=== PATIENT | male | born 1975 | race American Indian/Alaskan Native ===

== ENCOUNTER 2017-05-07 05:40 | Emergency (ER) | payer SELFPAY ==
[2017-05-07] MEDS ORDERED: ZOFRAN IV ONE (07:42)
[2017-05-07 08:15] LABS: Basophils % (Auto) 0.4 % (0.0-1.8); Eosinophils % (Auto) 0.2 % (0.0-4.3); Hematocrit 52.3 % (35.5-45.6); Hemoglobin 17.1 gm/dl (11.8-15.2); Mean Corpuscular HGB Conc 33 % (32-34); Mean Corpuscular Hemoglobin 28 pg (28-32); Mean Corpuscular Volume 84 fl (84-94); Platelet Count 288 K/mm3 (140-440); Red Blood Count 6.23 M/mm3 (3.65-5.03); Red Cell Distribution Width 15.1 % (13.2-15.2); White Blood Count 10.5 K/mm3 (4.5-11.0)
[2017-05-07 08:31] LABS: Alanine Aminotransferase 180 units/L (7-56); Albumin 4.5 g/dL (3.9-5); Albumin/Globulin Ratio 1.3 %; Alkaline Phosphatase 67 units/L (35-129); Anion Gap 18 mmol/L; Blood Urea Nitrogen 12 mg/dL (9-20); Calcium 9.2 mg/dL (8.4-10.2); Carbon Dioxide 25 mmol/L (22-30); Chloride 103.1 mmol/L (98-107); Glucose 89 mg/dL (75-100); Potassium 4.3 mmol/L (3.6-5.0); Sodium 142 mmol/L (137-145); Total Protein 7.9 g/dL (6.3-8.2)
--- NOTE | 2017-05-07 08:58 | Emergency Department Report ---
History of Present Illness - General Chief Complaint: Overdose Stated Complaint: OVERDOSE Time Seen by Provider: 05/07/17 07:19 Source: EMS Mode of arrival: Stretcher Limitations: Altered Mental Status - History of Present Illness MD Complaint: intentional overdose (patient was given Narcan for presumptive heroin overdose per EMS.) -: This morning Intent: unwilling to say How Overdose Was Discovered: called 911 (someone at residence) - Related Data Allergies Allergy/AdvReac Type Severity Reaction Status Date / Time Penicillins Allergy Unknown Verified 05/07/17 07:23 ED Review of Systems ROS: Stated complaint: OVERDOSE Other details as noted in HPI Comment: Unobtainable due to pts medical conditions ED Past Medical Hx - Past Medical History Previous Medical History?: No - Social History Smoking Status: Current Every Day Smoker Substance Use Type: Heroin ED Physical Exam - General Limitations: No Limitations General appearance: alert, in no apparent distress - Head Head exam: Present: atraumatic, normocephalic - Eye Eye exam: Present: normal appearance. Absent: scleral icterus - ENT ENT exam: Present: normal exam, mucous membranes moist - Neck Neck exam: Present: normal inspection - Respiratory Respiratory exam: Present: normal lung sounds bilaterally. Absent: respiratory distress - Cardiovascular Cardiovascular Exam: Present: regular rate, normal rhythm. Absent: systolic murmur, diastolic murmur, rubs, gallop - GI/Abdominal GI/Abdominal exam: Present: soft, normal bowel sounds. Absent: distended, tenderness, guarding, rebound, rigid - Rectal Rectal exam: Present: deferred - Extremities Exam Extremities exam: Present: normal inspection - Back Exam Back exam: Present: normal inspection - Neurological Exam Neurological exam: Present: alert, oriented X3, CN II-XII intact. Absent: motor sensory deficit - Psychiatric Psychiatric exam: Present: normal affect, normal mood - Skin Skin exam: Present: warm, dry, intact, normal color. Absent: rash ED Course Vital Signs 05/07/17 05/07/17 05/07/17 07:18 07:23 08:58 Temperature 97.8 F Pulse Rate 79 Respiratory 16 16 Rate Blood Pressure 125/90 Blood Pressure 104/61 [Right] O2 Sat by Pulse 92 92 Oximetry 05/07/17 09:31 Temperature Pulse Rate 99 H Respiratory 16 Rate Blood Pressure Blood Pressure 100/53 [Right] O2 Sat by Pulse 93 Oximetry - Reevaluation(s) Reevaluation #1: By the time of arrival the patient was reasonably awake. He did not want to provide any details on his substance abuse. Fact he requested discharge so he could "go back to work this afternoon". He was retained in the emergency department for observation for now more than 7 hours. He showed no signs of recurrent somnolence. He is appropriate for outpatient disposition. His drug screen was positive for okay but negative for opiates. It is somewhat uncertain as to what he may have ingested beyond the cocaine. Assuming it responded to Narcan obviously it was an opioid. 05/07/17 12:43 ED Medical Decision Making - Lab Data Result diagrams: 05/07/17 07:54 05/07/17 07:54 Laboratory Results - last 24 hr 05/07/17 05/07/17 07:54 07:54 WBC 10.5 RBC 6.23 H Hgb 17.1 H Hct 52.3 H MCV 84 MCH 28 MCHC 33 RDW 15.1 Plt Count 288 Lymph % (Auto) 9.1 L [place] % (Auto) 6.4 Eos % (Auto) 0.2 Baso % (Auto) 0.4 Lymph # 1.0 L [place] # 0.7 Eos # 0.0 Baso # 0.0 Seg Neutrophils % 83.9 H Seg Neutrophils # 8.8 H Sodium 142 Potassium 4.3 Chloride 103.1 Carbon Dioxide 25 Anion Gap 18 BUN 12 Creatinine 1.1 Estimated GFR > 60 BUN/Creatinine Ratio 10.90 Glucose 89 Calcium 9.2 Magnesium 2.20 Total Bilirubin 0.20 AST 114 H ALT 180 H Alkaline Phosphatase 67 Total Protein 7.9 Albumin 4.5 Albumin/Globulin Ratio 1.3 Laboratory Results - last 24 hr 05/07/17 05/07/17 05/07/17 07:54 07:54 07:54 WBC 10.5 RBC 6.23 H Hgb 17.1 H Hct 52.3 H MCV 84 MCH 28 MCHC 33 RDW 15.1 Plt Count 288 Lymph % (Auto) 9.1 L [place] % (Auto) 6.4 Eos % (Auto) 0.2 Baso % (Auto) 0.4 Lymph # 1.0 L [place] # 0.7 Eos # 0.0 Baso # 0.0 Seg Neutrophils % 83.9 H Seg Neutrophils # 8.8 H Sodium 142 Potassium 4.3 Chloride 103.1 Carbon Dioxide 25 Anion Gap 18 BUN 12 Creatinine 1.1 Estimated GFR > 60 BUN/Creatinine Ratio 10.90 Glucose 89 Calcium 9.2 Magnesium 2.20 Total Bilirubin 0.20 AST 114 H ALT 180 H Alkaline Phosphatase 67 Total Protein 7.9 Albumin 4.5 Albumin/Globulin Ratio 1.3 Urine Color Urine Turbidity Urine pH Ur Specific [place] Urine Protein Urine Glucose (UA) Urine Ketones Urine Blood Urine Nitrite Urine Bilirubin Urine Urobilinogen Ur Leukocyte Esterase Urine WBC (Auto) Urine RBC (Auto) U Epithel Cells (Auto) Urine Bacteria (Auto) Urine Mucus Salicylates < 0.3 L Urine Opiates Screen Urine Methadone Screen Acetaminophen Ur Barbiturates Screen Ur Phencyclidine Scrn Ur Amphetamines Screen U Benzodiazepines Scrn Urine Cocaine Screen U Marijuana (THC) Screen Drugs of Abuse Note Plasma/Serum Alcohol 05/07/17 05/07/17 05/07/17 07:54 07:54 09:41 WBC RBC Hgb Hct MCV MCH MCHC RDW Plt Count Lymph % (Auto) [place] % (Auto) Eos % (Auto) Baso % (Auto) Lymph # [place] # Eos # Baso # Seg Neutrophils % Seg Neutrophils # Sodium Potassium Chloride Carbon Dioxide Anion Gap BUN Creatinine Estimated GFR BUN/Creatinine Ratio Glucose Calcium Magnesium Total Bilirubin AST ALT Alkaline Phosphatase Total Protein Albumin Albumin/Globulin Ratio Urine Color Yellow Urine Turbidity Slightly-cloudy Urine pH 6.0 Ur Specific [place] 1.006 Urine Protein 30 mg/dl Urine Glucose (UA) >=500 Urine Ketones Tr Urine Blood Sm Urine Nitrite Neg Urine Bilirubin Neg Urine Urobilinogen < 2.0 Ur Leukocyte Esterase Neg Urine WBC (Auto) 2.0 Urine RBC (Auto) 2.0 U Epithel Cells (Auto) < 1.0 Urine Bacteria (Auto) 4+ Urine Mucus Few Salicylates Urine Opiates Screen Urine Methadone Screen Acetaminophen < 15.0 Ur Barbiturates Screen Ur Phencyclidine Scrn Ur Amphetamines Screen U Benzodiazepines Scrn Urine Cocaine Screen U Marijuana (THC) Screen Drugs of Abuse Note Plasma/Serum Alcohol 0.06 05/07/17 09:41 WBC RBC Hgb Hct MCV MCH MCHC RDW Plt Count Lymph % (Auto) [place] % (Auto) Eos % (Auto) Baso % (Auto) Lymph # [place] # Eos # Baso # Seg Neutrophils % Seg Neutrophils # Sodium Potassium Chloride Carbon Dioxide Anion Gap BUN Creatinine Estimated GFR BUN/Creatinine Ratio Glucose Calcium Magnesium Total Bilirubin AST ALT Alkaline Phosphatase Total Protein Albumin Albumin/Globulin Ratio Urine Color Urine Turbidity Urine pH Ur Specific [place] Urine Protein Urine Glucose (UA) Urine Ketones Urine Blood Urine Nitrite Urine Bilirubin Urine Urobilinogen Ur Leukocyte Esterase Urine WBC (Auto) Urine RBC (Auto) U Epithel Cells (Auto) Urine Bacteria (Auto) Urine Mucus Salicylates Urine Opiates Screen Presumptive negative Urine Methadone Screen Presumptive negative Acetaminophen Ur Barbiturates Screen Presumptive negative Ur Phencyclidine Scrn Presumptive negative Ur Amphetamines Screen Presumptive negative U Benzodiazepines Scrn Presumptive negative Urine Cocaine Screen Presumptive positive U Marijuana (THC) Screen Presumptive negative Drugs of Abuse Note Disclamer Plasma/Serum Alcohol - EKG Data EKG shows normal: sinus rhythm, axis, intervals, QRS complexes, ST-T waves Rate: normal - EKG Data Interpretation: nonspecific ST-T wave aura Critical care attestation.: If time is entered above; I have spent that time in minutes in the direct care of this critically ill patient, excluding procedure time. ED Disposition Clinical Impression: Substance abuse, Cocaine abuse, Opioid abuse Disposition: DC01 TO HOME OR SELFCARE Is pt being admited?: No Does the pt Need Aspirin: No Condition: Stable Instructions: Narcotic Abuse (ED), Cocaine Abuse (ED) Referrals: PRIMARY CARE, [Primary Care Provider[facility] - [facility]-5 Days Time of Disposition: 12:46
[2017-05-07 09:43] LABS: Urine Drugs of Abuse Note Disclamer
[2017-05-07 10:02] LABS: Bacteria,Urine 4+ /HPF (Negative); Bilirubin,Urine NEG (Negative); Blood,Urine SM (Negative); Ketones,Urine TR mg/dL (Negative); Leukocyte Esterase,Urine NEG (Negative); Mucus,Urine FEW /HPF; Nitrite,Urine NEG (Negative); Urobilinogen,Urine < 2.0 mg/dL (<2.0)
--- NOTE | 2017-05-07 12:14 | Consultation ---
History of Present Illness - Reason for Consult Consult date: 05/07/17 Reason for consult: unintentional overdose Medications and Allergies Allergies Allergy/AdvReac Type Severity Reaction Status Date / Time Penicillins Allergy Unknown Verified 05/07/17 07:23 Mental Status Exam - Vital signs Last Vital Signs Temp 97.8 F 05/07/17 07:23 Pulse 99 H 05/07/17 09:31 Resp 16 05/07/17 09:31 BP 100/53 05/07/17 09:31 Pulse Ox 93 05/07/17 09:31 Results Result Diagrams: 05/07/17 07:54 05/07/17 07:54 Abnormal lab results 05/07/17 05/07/17 05/07/17 Range/Units 07:54 07:54 07:54 RBC 6.23 H (3.65-5.03) M/mm3 Hgb 17.1 H (11.8-15.2) gm/dl Hct 52.3 H (35.5-45.6) % Lymph % (Auto) 9.1 L (13.4-35.0) % Lymph # 1.0 L (1.2-5.4) K/mm3 Seg Neutrophils % 83.9 H (40.0-70.0) % Seg Neutrophils # 8.8 H (1.8-7.7) K/mm3 AST 114 H (5-40) units/L ALT 180 H (7-56) units/L Salicylates < 0.3 L (2.8-20.0) mg/dL All other labs normal. Assessment and Plan Assessment and plan: CHIEF COMPLAINT IN PATIENTS WORDS: HISTORY OF PRESENT ILLNESS REQUIRING ADMISSION TO INPATIENT LEVEL OF CARE: (Describe the onset of Illness, Intensity of Symptoms, and Circumstances Leading to Admission) This is a 41 year-old domiciled male who reports a no formal PPH now presenting to the ER after an unintentional overdose on cocaine and heroin. Per review of medical record patient become apneic on the scene and was provided respiratory support as well as 2 doses of Narcan. On clinical examination, patient appeared alert and oriented. Patient was engaged in the clinical interview but somewhat confused about why he overdosed discussing the matter with him. Patient noted on my questioning that he had not intentionally overdose on these substances. Patient notes a substance use pattern is several weeks for the past 10-12 years. Patient did note taking cocaine as well as heroin during this most recent use. PSYCHIATRIC REVIEW OF SYSTEMS: Substance: Cocaine, heroin every 2 weeks for the past 10-12 years Depression: denies [place]: denies labile moods, no flight of ideas, not impulsive Psychosis: no AVH. No paranoia/grandiosity/erotomania Anxiety/ OCD/ PTSD: denies somatic symptoms, flashbacks, nightmares, avoidance, panic attacks Suicidality: denies SI Other Self-Injurious Behavior: none currently, no SIB noted recently Violent/ Aggressive Behavior: none noted CURRENT MEDICATIONS: ( Psychiatric and Non-psychiatric ) None ALLERGIES: Penicillin PAST PSYCHIATRIC HISTORY: ( Prior Treatment, Precipitating Factors, Diagnosis, and Course of Treatment ) Inpatient: none Outpatient: none Prior Suicide Attempts: denies Prior Self-Injurious Behaviors: denies PAST PSYCHIATRIC MEDICATION TRIALS: Denies MEDICAL HISTORY: (Chronic and Acute Illnesses, Current Medical Treatment, Recent Hospitalizations) Denies HISTORY OF TRAUMA/ABUSE: Patient denies on clinical examination DRUG / ALCOHOL ABUSE HISTORY: As noted above Detoxification / Withdrawal: Appears sedated after recent administration of Narcan due to overdose SOCIAL HISTORY: (Educational Level, Employment, Support System, Interpersonal Relationships) Employed at [employer] FAMILY HISTORY: Psychiatric/Substance Abuse Unknown MENTAL STATUS EXAM: General Appearance: casually dressed, in no acute distress Sensorium/Consciousness: alert and responding to external stimuli Eye Contact: limited Attitude / Behavior: cooperative, but guarded Psychomotor & Musculoskeletal Activity: WNL Mood: fine Affect: constricted Speech / Language: normal Thought Processes: organized, logical, linear Thought Content: no SI, no HI Perception: no AVH Orientation: person, place, time and situation Judgment What would you do if you smelled smoke in a crowded movie theater?: limited about substance abuse pattern Insight: limited about substance abuse pattern Intelligence Vocabulary, general fund of knowledge, educational level : Below Average Capacity of ADLs: Independent STRENGTHS: Future oriented, employed PSYCHOSOCIAL AND ENVIRONMENTAL STRESSORS: Thinking and chronic substance abuse ADMITTING DIAGNOSES Psychiatric: Acute intoxication with cocaine and heroin requiring Narcan 2 INITIAL PLAN OF CARE AND TREATMENT GOALS: Supportive care per ER protocol I discussed substance abuse programs with the patient, patient was not interested with his he does not believe he has a problem No further recommendations from psychiatry at this point in time as the patient is not interested or invested in any treatment options we have for him
[2017-05-07 14:11] VITALS: BP 130/75
== END 2017-05-07 14:12 | disposition home or self-care (01) ==
LOC: ED 05:40
DX: F14.10 Cocaine abuse, uncomplicated (principal); F11.10 Opioid abuse, uncomplicated; F19.10 Other psychoactive substance abuse, uncomplicated; F17.200 Nicotine dependence, unspecified, uncomplicated; Z88.0 Allergy status to penicillin
CPT/HCPCS: 36415; 80053; 80307; 81001; 83735; 85025; 93005; 93010; 96374; 99284; G0480; J2405; 80320

== ENCOUNTER 2019-04-17 14:05 | Emergency (ER) | payer SELFPAY ==
[2019-04-17 14:49] LABS: BUN/Creatinine Ratio 11; Blood Urea Nitrogen 10 mg/dL (9-20); Calcium 9.2 mg/dL (8.4-10.2); Hemolysis Index 11
[2019-04-17 14:53] LABS: Basophils # (Auto) 0.1 K/mm3 (0.0-0.1); Eosinophils # (Auto) 0.3 K/mm3 (0.0-0.4); Eosinophils % (Auto) 4.8 % (0.0-4.3); Hematocrit 46.3 % (35.5-45.6); Hemoglobin 15.2 gm/dl (11.8-15.2); Lymphocytes # (Auto) 2.6 K/mm3 (1.2-5.4); Lymphocytes % (Auto) 40.6 % (13.4-35.0); Mean Corpuscular HGB Conc 33 % (32-34); Mean Corpuscular Volume 82 fl (84-94); Monocytes # (Auto) 0.8 K/mm3 (0.0-0.8); Monocytes % (Auto) 12.3 % (0.0-7.3); Platelet Count 284 K/mm3 (140-440); Red Blood Count 5.67 M/mm3 (3.65-5.03); Red Cell Distribution Width 16.9 % (13.2-15.2)
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
[2019-04-17] MEDS ORDERED: CLEOCIN 600 MG/50 mL 600 MG/50 ML BAG IV ONE (15:15)
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
[2019-04-17] MEDS ORDERED: NORCO 5/325 PO ONE (15:43)
[2019-04-17] MEDS ORDERED: NORCO 5/325 ONE (15:45)
[2019-04-17 16:31] VITALS: BP 146/91
== END 2019-04-17 16:31 | disposition home or self-care (01) ==
LOC: ED 14:05
DX: S81.802A Unspecified open wound, left lower leg, initial encounter (principal); J45.909 Unspecified asthma, uncomplicated; F17.200 Nicotine dependence, unspecified, uncomplicated; Z88.0 Allergy status to penicillin; Z91.013 Allergy to seafood; W34.09XA Accidental discharge from other specified firearms, initial encounter; Y93.89 Activity, other specified; Y92.89 Other specified places as the place of occurrence of the external cause; Y99.8 Other external cause status
CPT/HCPCS: 36415; 80048; 85025; 96365